=== PATIENT | female | born 1930 | race Caucasian/White ===

== ENCOUNTER 2017-01-03 13:21 | Emergency (ER) | payer MEDICARE ==
[2017-01-03 14:23] LABS: Hematocrit 43 % (35-47); Hemoglobin 13.8 g/dl (12.0-16.0); Mean Corpuscular HGB Conc 32 g/dl (31-36); Mean Corpuscular Hemoglobin 30 pg (27-31); Mean Corpuscular Volume 93 fL (80-97); Mean Platelet Volume 10 um3 (7.4-10.4); Red Cell Distribution Width 16 % (10.5-15)
[2017-01-03 14:40] LABS: Albumin 3.5 g/dL (3.2-5.2); C Reactive Protein 3.4 mg/L (< 5.00); Calcium 9.1 mg/dL (8.6-10.3); EGFR African American 47.2 (>60); EGFR Non-African American 36.7 (>60); Globulin 4.5 g/dL (2-4); Potassium 3.5 mmol/L (3.5-5.0); Total Bilirubin 0.8 mg/dL (0.2-1.0)
--- NOTE | 2017-01-03 14:47 | RAD ---
Indication: Left elbow pain. 4 views of left elbow demonstrates no definite fracture or joint effusion. 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 IMPRESSION: No fracture is noted. Findings suspicious for synovial osteochondromatosis.
--- NOTE | 2017-01-03 14:52 | RAD ---
Indication: Forearm injury. 2 views of the forearm demonstrates no definite fracture. Degenerative changes of the radiocarpal joint is noted. IMPRESSION: Degenerative changes of the radiocarpal joint without fracture.
[2017-01-03] MEDS ORDERED: Morphine INJ* 4 MG/ML 1 ML CARPUJECT IV ONE (14:55)
--- NOTE | 2017-01-03 15:04 | ED ---
Sundeep Haley Benjamin, scribed for Gem Mcdaniel MD on 01/03/17 at 1347 . Upper Extremity Pain - HPI Summary HPI Summary: 86yo female BIB EMS for left arm pain. Pt denies any injuries. Also denies CP, Neck pain, back pain, or SOB. Pt is hypertensive, and is on blood thinner. Slightly nauseous, and hurts to move her left arm in all directions. - History of Current Complaint Stated Complaint: LT ARM PAIN Hx Obtained From: Patient, EMS Mechanism Of Injury: Unknown - no known injury Onset/Duration: Started Hours Ago, Still Present Timing: Constant Severity Initially: Moderate Severity Currently: Moderate Pain Location: Shoulder - left, Arm - left Aggravating Factor(s): Movement, Lifting, Abduction, Adduction Alleviating Factor(s): Rest Associated Signs & Symptoms: Positive: Negative - Allergies/Home Medications Allergies/Adverse Reactions: Allergies Allergy/AdvReac Type Severity Reaction Status Date / Time No Known Allergies Allergy Verified 03/28/14 09:48 PMH/Surg Hx/FS Hx/Imm Hx - Family History Known Family History: Negative: Cardiac Disease, Hypertension - Social History Occupation: Retired Alcohol Use: Weekly Substance Use Type: Reports: None Review of Systems Constitutional: Negative Eyes: Negative ENT: Negative Cardiovascular: Negative Respiratory: Negative Positive: Nausea Genitourinary: Negative Positive: Arthralgia - LUE Pain Skin: Negative Neurological: Negative Psychological: Normal All Other Systems Reviewed And Are Negative: Yes Physical Exam Triage Information Reviewed: Yes Vital Signs On Initial Exam: Initial Vitals Temp Pulse Resp BP Pulse Ox 99.2 F 88 14 222/111 95 01/03/17 13:38 01/03/17 13:38 01/03/17 13:38 01/03/17 13:38 01/03/17 13:38 Vital Signs Reviewed: Yes Appearance: Positive: Well-Appearing, Well-Nourished, Pain Distress - mild Skin: Positive: Warm, Skin Color Reflects Adequate Perfusion, Dry Head/Face: Positive: Normal Head/Face Inspection Eyes: Positive: EOMI, ADOLFO ENT: Positive: Hearing grossly normal, Pharynx normal, TMs normal Neck: Positive: Supple, Nontender Respiratory/Lung Sounds: Positive: Clear to Auscultation, Breath Sounds Present Cardiovascular: Positive: RRR Abdomen Description: Positive: Nontender, No Organomegaly Bowel Sounds: Positive: Present Musculoskeletal: Positive: Strength/ROM Intact Neurological: Positive: Sensory/Motor Intact, Alert, Oriented to Person Place, Time, CN Intact II-III Psychiatric: Positive: Affect/Mood Appropriate Diagnostics - Vital Signs Vital Signs Temp Pulse Resp BP Pulse Ox 01/03/17 14:01 86 223/106 96 01/03/17 13:38 99.2 F 88 14 222/111 95 - Laboratory Lab Results: Lab Results 01/03/17 01/03/17 01/03/17 Range/Units 14:05 14:05 14:05 WBC 11.0 H (3.5-10.8) 10^3/ul RBC 4.60 (4.0-5.4) 10^6/ul Hgb 13.8 (12.0-16.0) g/dl Hct 43 (35-47) % MCV 93 (80-97) fL MCH 30 (27-31) pg MCHC 32 (31-36) g/dl RDW 16 H (10.5-15) % Plt Count 142 L (150-450) 10^3/ul MPV 10 (7.4-10.4) um3 Neut % (Auto) 74.4 (38-83) % Lymph % (Auto) 15.9 L (25-47) % [place] % (Auto) 8.3 (1-9) % Eos % (Auto) 0.3 (0-6) % Baso % (Auto) 1.1 (0-2) % Absolute Neuts (auto) 8.2 H (1.5-7.7) 10^3/ul Absolute Lymphs (auto) 1.8 (1.0-4.8) 10^3/ul Absolute Monos (auto) 0.9 H (0-0.8) 10^3/ul Absolute Eos (auto) 0 (0-0.6) 10^3/ul Absolute Basos (auto) 0.1 (0-0.2) 10^3/ul Absolute Nucleated RBC 0.01 10^3/ul Nucleated RBC % 0.1 ESR Pending INR (Anticoag Therapy) 1.99 H (0.89-1.11) Sodium 137 (133-145) mmol/L Potassium 3.5 (3.5-5.0) mmol/L Chloride 103 (101-111) mmol/L Carbon Dioxide 27 (22-32) mmol/L Anion Gap 7 (2-11) mmol/L BUN 34 H (6-24) mg/dL Creatinine 1.36 H (0.51-0.95) mg/dL Est GFR ( Amer) 47.2 (>60) Est GFR (Non-Af Amer) 36.7 (>60) BUN/Creatinine Ratio 25.0 H (8-20) Glucose 147 H (70-100) mg/dL Lactic Acid (0.5-2.0) mmol/L Calcium 9.1 (8.6-10.3) mg/dL Total Bilirubin 0.80 (0.2-1.0) mg/dL AST 56 H (13-39) U/L ALT 53 H (7-52) U/L Alkaline Phosphatase 74 (34-104) U/L C-Reactive Protein 3.40 (< 5.00) mg/L Total Protein 8.0 (6.4-8.9) g/dL Albumin 3.5 (3.2-5.2) g/dL Globulin 4.5 H (2-4) g/dL Albumin/Globulin Ratio 0.8 L (1-3) // Range/Units 14:05 WBC (3.5-10.8) 10^3/ul RBC (4.0-5.4) 10^6/ul Hgb (12.0-16.0) g/dl Hct (35-47) % MCV (80-97) fL MCH (27-31) pg MCHC (31-36) g/dl RDW (10.5-15) % Plt Count (150-450) 10^3/ul MPV (7.4-10.4) um3 Neut % (Auto) (38-83) % Lymph % (Auto) (25-47) % [place] % (Auto) (1-9) % Eos % (Auto) (0-6) % Baso % (Auto) (0-2) % Absolute Neuts (auto) (1.5-7.7) 10^3/ul Absolute Lymphs (auto) (1.0-4.8) 10^3/ul Absolute Monos (auto) (0-0.8) 10^3/ul Absolute Eos (auto) (0-0.6) 10^3/ul Absolute Basos (auto) (0-0.2) 10^3/ul Absolute Nucleated RBC 10^3/ul Nucleated RBC % ESR INR (Anticoag Therapy) (0.89-1.11) Sodium (133-145) mmol/L Potassium (3.5-5.0) mmol/L Chloride (101-111) mmol/L Carbon Dioxide (22-32) mmol/L Anion Gap (2-11) mmol/L BUN (6-24) mg/dL Creatinine (0.51-0.95) mg/dL Est GFR ( Amer) (>60) Est GFR (Non-Af Amer) (>60) BUN/Creatinine Ratio (8-20) Glucose (70-100) mg/dL Lactic Acid 1.3 (0.5-2.0) mmol/L Calcium (8.6-10.3) mg/dL Total Bilirubin (0.2-1.0) mg/dL AST (13-39) U/L ALT (7-52) U/L Alkaline Phosphatase (34-104) U/L C-Reactive Protein (< 5.00) mg/L Total Protein (6.4-8.9) g/dL Albumin (3.2-5.2) g/dL Globulin (2-4) g/dL Albumin/Globulin Ratio (1-3) Result Diagrams: 01/03/17 14:05 01/03/17 14:05 Lab Statement: Any lab studies that have been ordered have been reviewed, and results considered in the medical decision making process. - EKG 1349. Cardiac Rate: NL EKG Rhythm: Atrial Flutter EKG Interpretation: LVH. EKG also reviewed by Dr. Tonya Aguero EKG Comparison: No Significant Change - compared to 12/27/15 Course/Dx - Course Course Of Treatment: 86 yo female with exquisite tenderness to left elbow for several days. xrays are negative. she is on blood thinners. Her ekg was read as an acute mi but when evaluated by cardiology we are both in agreement that this is essentially unchanged from her previous ekg. xrays do not show fracture a CT of the elbow has been ordered to look for effusion/hemarthrosis. pt will be signed out to Dr. Polanco - Diagnoses Provider Diagnoses: Hypertension, Elbow pain, left - Physician Notifications Discussed Care Of Patient With: Dr. Aguero (cardiology) @[id number]. Discharge - Discharge Plan Condition: Stable Disposition: OTHER Discharge Disposition Comment: disposition to be made by Dr. polanco The documentation as recorded by the Sundeep masterson Benjamin accurately reflects the service I personally performed and the decisions made by me, Gem Mcdaniel MD.
[2017-01-03] MEDS ORDERED: Ondansetron INJ* 2 MG/ML VIAL ONE (15:10)
[2017-01-03] MEDS ORDERED: Ondansetron INJ* 2 MG/ML VIAL IV ONE (15:10)
[2017-01-03 15:13] LABS: Erythrocyte Sed Rate 20 mm/Hr (0-40)
--- NOTE | 2017-01-03 16:12 | RAD ---
Indication: Left elbow pain. CT of the elbow was obtained in the axial plane. Sagittal and coronal reconstructed images were obtained. Multiple loose bodies are noted in the elbow joint. There may be a joint effusion noted. No definite fracture is identified although degenerative changes are noted between the radial capitellar joint as well as the trochlear ulnar joint. The distal humerus demonstrates no fracture. IMPRESSION: Multiple intra-articular loose bodies with a small joint effusion is noted. No definite fractures identified although degenerative changes of the elbow are present.
--- NOTE | 2017-01-03 17:45 | ED ---
Progress - Progress Note Progress Note: DISCUSSED WITH DR ECHEVERRIA, ORTHOPEDICS. THE SWELLING IS MOST PROBABLY CAUSED BY BLEEDING INTO THE JOINT. PATIENT PLACED IN A SLING AND WILL F/U WITH ORTHOPEDICS; RETURN TO ED IF WORSE. DISCHARGE HOME STABLE. Course/Dx - Course Course Of Treatment: 86 yo female with exquisite tenderness to left elbow for several days. xrays are negative. she is on blood thinners. Her ekg was read as an acute mi but when evaluated by cardiology we are both in agreement that this is essentially unchanged from her previous ekg. xrays do not show fracture a CT of the elbow has been ordered to look for effusion/hemarthrosis. pt will be signed out to Dr. Polanco - Diagnoses Provider Diagnoses: Hypertension, Elbow pain, left - Provider Notifications Discussed Care Of Patient With: Dr. Aguero (cardiology) @[id number].
[2017-01-03 18:15] VITALS: BP 180/87
== END 2017-01-03 18:14 | disposition home or self-care (01) ==
LOC: ED 13:21
DX: I10 Essential (primary) hypertension (principal); M25.522 Pain in left elbow; R11.0 Nausea
CPT/HCPCS: 36415; 80053; 83605; 85025; 85610; 85652; 86140; 93005; 96374; 96375; 99284; J2270; J2405